=== PATIENT | female | born 1940 | race Hispanic/Latino ===

== ENCOUNTER 2019-04-19 17:39 | Observation (INO) | payer MEDICARE ==
[~2019-04-19] VITALS: Ht 157.5 cm; Wt 66.6 kg
[2019-04-19] MEDS ORDERED: ONDANSETRON HCL 4 MG/2 ML VIAL ONE (18:24)
[2019-04-19] MEDS ORDERED: SODIUM CHLORIDE 0.9% 1000ML 1,000 ML IV ONE (18:25)
[2019-04-19] MEDS ORDERED: FAMOTIDINE/PF 20 MG/2 ML VIAL IV ONE (18:25)
[2019-04-19 19:32] LABS: BASOPHILS % (AUTO) 0.6 % (0.0-5.0); EOSINOPHILS % (AUTO) 0.8 % (0.0-8.0); HEMATOCRIT 35.2 % (36-48); LYMPHOCYTES % (AUTO) 15.1 % (21.0-51.0); MEAN CORPUSCULAR HEMOGLOBIN 29.7 pg (27.0-33.0); MEAN CORPUSCULAR HGB CONC 33.3 g/dL (32.0-36.0); MONOCYTES % (AUTO) 6.1 % (3.0-13.0); NEUTROPHILS % (AUTO) 77.4 % (40.0-77.0); NUCLEATED RED BLOOD CELLS 0.1 % (0.0-0.19); PLATELET COUNT (AUTO) 226 K/uL (130-400); RED BLOOD CELL COUNT(AUTO) 3.95 MIL/uL (4.00-5.50); RED CELL DISTRIBUTION WIDTH 14.3 % (11.0-15.5); WHITE BLOOD COUNT (AUTO) 7.8 K/uL (4.8-10.8)
[2019-04-19 19:35] LABS: APPEARANCE,URINE Clear (CLEAR); BILIRUBIN,URINE Negative (NEGATIVE); COLOR,URINE Yellow (YELLOW); GLUCOSE, URINE (UA) Negative (NEGATIVE); KETONES,URINE Negative (NEGATIVE); LEUKOCYTE ESTERASE ,URINE Moderate (NEGATIVE); NITRATE,URINE Negative (NEGATIVE); OCCULT BLOOD,URINE Small (NEGATIVE); PH,URINE 6.5 (5.0-8.0); PROTEIN,URINE Negative (NEGATIVE); UROBILINOGEN,URINE 0.2 mg/dL (0.2-1.0)
[2019-04-19 19:44] LABS: INR 1.06 (0.85-1.15); PARTIAL THROMBOPLASTIN TIME 23.1 SEC (26.3-35.5); PROTHROMBIN TIME 11.1 SEC (9.6-11.6)
[2019-04-19 19:49] LABS: BACTERIA,URINE Moderate /HPF (None Seen); MUCUS,URINE Few LPF (None Seen)
[2019-04-19 19:56] LABS: B-TYPE NATRIURETIC PEPTIDE 54 pg/mL (0-100)
[2019-04-19 20:24] LABS: ALBUMIN 3.4 g/dL (3.5-5.0); BILIRUBIN,TOTAL 0.4 mg/dL (0.2-1.0); TOTAL PROTEIN, SERUM 7.4 g/dL (6.0-8.3)
[2019-04-19] MEDS ORDERED: LEVOFLOXACIN 500 MG/D5W 100 ML 100 ML ONE (22:07)
[2019-04-20 00:25] VITALS: BP 135/79
[2019-04-20] MEDS ORDERED: ONDANSETRON HCL 4 MG/2 ML VIAL IVP PRN (01:15)
[2019-04-20] MEDS ORDERED: LEVOFLOXACIN 500 MG/D5W 100 ML 100 ML IV SCH (01:15)
[2019-04-20] MEDS ORDERED: MORPHINE SULFATE 2 MG/ML 1ML SYG IVP PRN (01:15)
[2019-04-20] MEDS ORDERED: ROSU10TA28 PO (01:59)
[2019-04-20] MEDS ORDERED: LACT10SO PO (01:59)
[2019-04-20] MEDS ORDERED: ASPI-1181 PO (01:59)
[2019-04-20] MEDS ORDERED: ALEN35TA23 PO (01:59)
[2019-04-20] MEDS ORDERED: LEVO25TA54 PO (01:59)
[2019-04-20] MEDS ORDERED: AMLO2.5T4 PO (01:59)
[2019-04-20] MEDS: SODIUM CHLORIDE 0.9% 1000ML 1,000 ML IV SCH ×2 (02:02→12:58)
[2019-04-20 04:00] VITALS: BP 145/71
[2019-04-20 07:54] VITALS: BP 144/68
[2019-04-20] MEDS ORDERED: FAMOTIDINE/PF 20 MG/2 ML VIAL IV SCH (09:00)
[2019-04-20] MEDS ORDERED: LACTULOSE 20 GM/30 ML UDCUP PO SCH (09:15)
[2019-04-20 11:47] VITALS: BP 144/71
[2019-04-20] MEDS ORDERED: PANTOPRAZOLE SODIUM 40 MG TABLET.DR PO SCH ×3 (12:45→21:00)
[2019-04-20 16:00] VITALS: BP 125/68
--- NOTE | 2019-04-20 16:14 | NUR ---
Notified physician that patient was able to tolerate cardiac heart healthy diet, low fat per Dr. Mitchell's recommendation without nausea or vomiting. Patient reports minimal abdominal pain after meal. Also reported large loose bowel movement with some formed particles after lactulose. Received telephone order to discharge to home with heart healthy diet, instructions to take Nexium dose BID for two weeks then resume Nexium dose daily thereafter. Prescription for Levaquin 500 mg PO daily x 5 days to be called into pharmacy.
--- NOTE | 2019-04-20 17:36 | NUR ---
Prescription called into [facility] pharmacy in [place], for Levaquin 500 mg PO Daily for 5 days. 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
--- NOTE | 2019-04-20 18:50 | NUR ---
Patient stated they did not take Nexium at home. Telephoned Dr. Wilkerson and received order for Nexium 40 mg BID for 2 weeks, and Nexium 40 mg thereafter for a month. [facility] in [place] closed. Will call in prescription in the AM. Patient and daughter notified and verbalized understanding of medication instructions.
[2019-04-20] MEDS ORDERED: ATORVASTATIN CALCIUM 20 MG TABLET PO SCH (21:00)
[2019-04-21] MEDS ORDERED: LEVOTHYROXINE 25 MCG TABLET PO SCH (07:30)
[2019-04-21] MEDS ORDERED: AMLODIPINE BESYLATE 2.5 MG TAB PO SCH (08:00)
[2019-04-21] MEDS ORDERED: ASPIRIN 81 MG EC TAB PO SCH (09:00)
== END 2019-04-20 19:45 | disposition home or self-care (01) ==
LOC: EDH 17:39 → EDHIP 23:29 → 4BH 04-20 00:06
PROVIDERS: ADMIT Internal Medicine Critical Care Medicine; ATTEND Internal Medicine Critical Care Medicine
DX: R10.13 Epigastric pain (principal); N30.00 Acute cystitis without hematuria; G89.29 Other chronic pain; M54.9 Dorsalgia, unspecified; K80.10 Calculus of gallbladder with chronic cholecystitis without obstruction; I10 Essential (primary) hypertension; E03.9 Hypothyroidism, unspecified; E78.5 Hyperlipidemia, unspecified; E78.00 Pure hypercholesterolemia, unspecified; Z79.82 Long term (current) use of aspirin; Z79.899 Other long term (current) drug therapy; Z87.39 Personal history of other diseases of the musculoskeletal system and connective tissue; Z88.0 Allergy status to penicillin
CPT/HCPCS: 36415; 74176; 76705; 80053; 81001; 82550; 83605; 83690; 83880; 84484; 85025; 85610; 85730; 87040; 87804 ×2; 93005; 99284; G0378 ×21; J1956; J2405; J3490; J7030 ×2

== ENCOUNTER → 2022-06-19 | Outpatient (CLI) | payer MEDICARE ==
[~2022-06-19] MED LIST: ALEN35TA53 PO; AMLO2.5T4 PO; ASPI-1443 PO; LACT10SO5 PO; LEVO25TA54 PO; ROSU10TA28 PO
== END | disposition home or self-care (01) ==
LOC: RAH 08:27
PROVIDERS: ATTEND Internal Medicine
DX: R10.13 Epigastric pain (principal)
CPT/HCPCS: 76700